=== PATIENT | female | born 1940 | race Caucasian/White ===

== ENCOUNTER 2019-12-01 22:32 | Inpatient (IN) ==
[2019-12-01] MEDS ORDERED: ENOXAPARIN 60 MG/0.6 ML SYRINGE ONE (22:51)
[2019-12-01] MEDS ORDERED: ENOXAPARIN 60 MG/0.6 ML SYRINGE IV ONE (22:51)
[2019-12-01] MEDS ORDERED: ONDANSETRON 4 MG/2 ML VIAL IV STA (22:51)
[2019-12-01] MEDS ORDERED: NITROGLYCERIN 2% OINT 1 INCH/GM PACK TOP STA (22:51)
[2019-12-01] MEDS ORDERED: ASPIRIN 325 MG TABLET PO STA (22:51)
[2019-12-01] MEDS ORDERED: ENOXAPARIN 100 MG/ML SYRINGE SUBCUT STA (22:51)
[2019-12-01] MEDS ORDERED: ENOXAPARIN 30 MG/0.3 ML SYRINGE ONE (22:52)
[2019-12-01] MEDS ORDERED: ASPIRIN 325 MG TABLET ONE (22:52)
[2019-12-01] MEDS ORDERED: NITROGLYCERIN 2% OINT 1 INCH/GM PACK TOP ONE (22:52)
[2019-12-01 23:05] LABS: Basophils # 0.1 10*3/uL (0.0-0.2); Basophils % 1.1 % (0.0-0.8); Eosinophils # 0.5 10*3/uL (0.0-0.87); Hematocrit 34.7 VOL% (35.7-47.0); Immature Granulocytes % 0.3 %; Immature Granulocytes Absolute 0.02 #; Lymphocytes # 3.7 10*3/uL (1.4-4.0); Lymphocytes % 49.5 % (21.3-54.2); Mean Corpuscular HGB Conc 31.7 GM/DL (32-36); Mean Corpuscular Volume 99.1 FL (87-102); Mean Platelet Volume 9.6 FL (9.6-12.0); Monocytes % 8.3 % (1.7-12.7); Neutrophils % 34.8 % (38.7-73.9); Platelet Count 351 T/CUMM (130-400); Red Cell Distribution Width 13.8 % (9.3-17.3); White Blood Count 7.5 T/CUMM (4-12)
[2019-12-01 23:15] LABS: INR 0.9; PT Patient Result 9.5 SECS (9.6-12.2); Partial Thromboplastin Time 25.4 SECS (20.8-36.0)
[2019-12-01] MEDS ORDERED: HYDROmorphone 2 MG/1 ML VIAL ONE (23:26)
[2019-12-01 23:29] LABS: Alanine Aminotransferase 26 U/L (13-56); Albumin 3.7 G/DL (3.4-5.0); Alkaline Phosphatase 84 U/L (45-117); Aspartate Amino Transferase 28 U/L (0-37); Bilirubin,Total < 0.39 MG/DL (0.2-1.0); Blood Urea Nitrogen 24 MG/DL (7-18); Calcium 9.2 MG/DL (8.5-10.1); Estimated Glom Filtration Rate 30 ML/MIN; Glucose 117 MG/DL (74-106); Osmolality,Calculated 281.5 MOS/KG (273-304); Total Protein 7.2 G/DL (6.4-8.3)
[2019-12-01 23:32] LABS: Troponin I 0.173 NG/ML (0.00-0.045)
[2019-12-01] MEDS ORDERED: MIDAZOLAM 2 MG/2 ML VIAL ONE (23:46)
[2019-12-01] MEDS ORDERED: TIROFIBAN 5,000 MCG/100 ML PREMIX IV ONE (23:47)
[2019-12-02 00:07] LABS: Band Neutrophils 3 % (0-10); Eosinophils 8 % (0-10); Lymphocytes 47 % (20-55); Segmented Neutrophils 30 % (50-85); Total Cells Counted 100
[2019-12-02 00:08] LABS: Platelet Estimate Normal
[2019-12-02] MEDS ORDERED: TICAGRELOR 90 MG TABLET ONE (00:26)
[2019-12-02] MEDS ORDERED: FUROSEMIDE 40 MG/4 ML VIAL IV ONE ×3 (01:59→18:32)
[2019-12-02] MEDS: methylPREDNISolone SOD SUC 125 MG/2 ML VIAL IV SCH ×2 (02:20→14:56)
[2019-12-02] MEDS: ROSUVASTATIN 20 MG TABLET PO SCH ×2 (02:21→20:20)
[2019-12-02 02:43] LABS: CKMB % 7.4 %
[2019-12-02 02:48] LABS: Troponin I 3.34 NG/ML (0.00-0.045)
[2019-12-02] MEDS: LEVALBUTEROL 0.63 MG/3 ML NEB RESP TX SCH ×4 (03:21→19:06)
[2019-12-02 05:02] LABS: Basophils # 0.1 10*3/uL (0.0-0.2); Basophils % 0.6 % (0.0-0.8); Eosinophils # 0.1 10*3/uL (0.0-0.87); Eosinophils % 0.6 % (0.00-10.9); Hematocrit 37.4 VOL% (35.7-47.0); Hemoglobin 11.5 GM/DL (12.0-16.0); Immature Granulocytes % 0.3 %; Immature Granulocytes Absolute 0.03 #; Lymphocytes % 18.5 % (21.3-54.2); Mean Corpuscular HGB Conc 30.7 GM/DL (32-36); Mean Corpuscular Volume 99.2 FL (87-102); Mean Platelet Volume 9.8 FL (9.6-12.0); Monocytes % 4.2 % (1.7-12.7); Neutrophils % 75.8 % (38.7-73.9); Platelet Count 405 T/CUMM (130-400); Red Blood Count 3.77 MC/CUMM (3.8-5.5); Red Cell Distribution Width 13.8 % (9.3-17.3); White Blood Count 10.8 T/CUMM (4-12)
[2019-12-02 05:31] LABS: CKMB % 10.1 %; Calcium 9.2 MG/DL (8.5-10.1); Osmolality,Calculated 275.1 MOS/KG (273-304)
[2019-12-02 06:30] LABS: Troponin I 9.29 NG/ML (0.00-0.045)
[2019-12-02] MEDS: CYANOCOBALAMIN 500 MCG TABLET PO SCH (08:45)
[2019-12-02] MEDS: TICAGRELOR 90 MG TABLET PO SCH ×2 (08:45→20:20)
[2019-12-02] MEDS: ASPIRIN CHEW 81 MG TABLET PO SCH (08:45)
[2019-12-02] MEDS: MULTIVITAMIN (CENTRUM) TABLET PO SCH (08:45)
[2019-12-02] MEDS: PANTOPRAZOLE 20 MG TABLET PO SCH (08:45)
[2019-12-02] MEDS: METOPROLOL TARTRATE 25 MG TABLET PO SCH ×3 (08:45→20:20)
[2019-12-02] MEDS: PSYLLIUM POWDER 3.7 GM/PACK PO SCH ×3 (08:45→20:19)
[2019-12-02] MEDS ORDERED: METOPROLOL TARTRATE 5 MG/5 ML VIAL IV ONE (10:26)
[2019-12-02] MEDS ORDERED: FUROSEMIDE 40 MG/4 ML VIAL IV SCH (10:30)
[2019-12-02 11:59] LABS: CKMB % 9.2 %
[2019-12-02 12:01] LABS: Troponin I 13.8 NG/ML (0.00-0.045)
[2019-12-02] MEDS: NITROGLYCERIN 2% OINT 1 INCH/GM PACK TOP SCH ×2 (12:09→17:50)
[2019-12-02] MEDS: FUROSEMIDE 40 MG/4 ML VIAL IV SCH (17:54)
[2019-12-02] MEDS ORDERED: FUROSEMIDE 100 MG/10 ML VIAL ONE (18:39)
[2019-12-02] MEDS: GABAPENTIN 100 MG CAPSULE PO SCH (20:19)
[2019-12-02] MEDS ORDERED: ALPRAZolam 0.25 MG TABLET PO ONE (22:24)
[2019-12-02] MEDS ORDERED: ALBUTEROL/IPRATROPIUM 3 ML NEB RESP TX PRN (22:24)
[2019-12-02] MEDS: metOLazone 2.5 MG TABLET PO SCH (22:43)
[2019-12-02 23:06] LABS: Allen Test Positive
[2019-12-02 23:07] LABS: ABG HCO3 27.4 MMOL/L (20-26); ABG PCO2 29.1 MM HG (35-48); ABG PH 7.544 (7.35-7.45); ABG PO2 71.7 MM HG (80-95)
[2019-12-02 23:08] LABS: ABG Base Excess 3.4 MMOL/L (-2.5-2.5); ABG Oxygen Saturation 96.1 % (95-100); ABG TCO2 22.2 MMOL/L (23-27)
[2019-12-02] MEDS ORDERED: CLORAZEPATE 3.75 MG TABLET PO PRN (23:20)
[2019-12-03] MEDS: LEVALBUTEROL 0.63 MG/3 ML NEB RESP TX SCH ×4 (00:11→18:55)
[2019-12-03] MEDS: methylPREDNISolone SOD SUC 125 MG/2 ML VIAL IV SCH (02:08)
[2019-12-03 05:01] LABS: Basophils % 0.1 % (0.0-0.8); Immature Granulocytes % 0.5 %; Immature Granulocytes Absolute 0.05 #; Lymphocytes # 1.2 10*3/uL (1.4-4.0); Lymphocytes % 12.2 % (21.3-54.2); Mean Corpuscular HGB Conc 33.3 GM/DL (32-36); Mean Corpuscular Volume 93.5 FL (87-102); Mean Platelet Volume 10.2 FL (9.6-12.0); Monocytes % 5.6 % (1.7-12.7); Neutrophils % 81.6 % (38.7-73.9); Platelet Count 334 T/CUMM (130-400); Red Blood Count 3.53 MC/CUMM (3.8-5.5); Red Cell Distribution Width 13.7 % (9.3-17.3); White Blood Count 9.4 T/CUMM (4-12)
[2019-12-03 08:06] LABS: CKMB % 5.4 %; Calcium 9.2 MG/DL (8.5-10.1); Osmolality,Calculated 267.9 MOS/KG (273-304)
[2019-12-03 08:12] LABS: Troponin I 20.8 NG/ML (0.00-0.045)
[2019-12-03] MEDS ORDERED: POTASSIUM CHLORIDE 20 MEQ TABLET PO ONE ×3 (08:58→16:37)
[2019-12-03] MEDS ORDERED: MAGNESIUM SULF RIDER 4 GM in PREMIX 1 EACH IV ONE (08:58)
[2019-12-03] MEDS: ASPIRIN CHEW 81 MG TABLET PO SCH (09:12)
[2019-12-03] MEDS: CYANOCOBALAMIN 500 MCG TABLET PO SCH (09:12)
[2019-12-03] MEDS: PANTOPRAZOLE 20 MG TABLET PO SCH (09:12)
[2019-12-03] MEDS: metOLazone 2.5 MG TABLET PO SCH (09:12)
[2019-12-03] MEDS: TICAGRELOR 90 MG TABLET PO SCH ×2 (09:12→20:41)
[2019-12-03] MEDS: MULTIVITAMIN (CENTRUM) TABLET PO SCH (09:12)
[2019-12-03] MEDS: FUROSEMIDE 40 MG/4 ML VIAL IV SCH ×2 (09:13→16:16)
[2019-12-03] MEDS ORDERED: FUROSEMIDE 100 MG/10 ML VIAL ONE (16:04)
[2019-12-03] MEDS: GABAPENTIN 100 MG CAPSULE PO SCH (20:41)
[2019-12-03] MEDS: PSYLLIUM POWDER 3.7 GM/PACK PO SCH (20:41)
[2019-12-04] MEDS: LEVALBUTEROL 0.63 MG/3 ML NEB RESP TX SCH ×4 (01:04→18:50)
[2019-12-04 05:35] LABS: Basophils % 0.1 % (0.0-0.8); Eosinophils % 0.1 % (0.00-10.9); Hematocrit 30.3 VOL% (35.7-47.0); Hemoglobin 10.1 GM/DL (12.0-16.0); Immature Granulocytes % 0.6 %; Immature Granulocytes Absolute 0.08 #; Lymphocytes # 1.3 10*3/uL (1.4-4.0); Lymphocytes % 10.3 % (21.3-54.2); Mean Corpuscular HGB Conc 33.3 GM/DL (32-36); Mean Corpuscular Volume 94.7 FL (87-102); Mean Platelet Volume 10.5 FL (9.6-12.0); Monocytes % 11.1 % (1.7-12.7); Neutrophils % 77.8 % (38.7-73.9); Platelet Count 307 T/CUMM (130-400); Red Cell Distribution Width 13.9 % (9.3-17.3); White Blood Count 12.6 T/CUMM (4-12)
[2019-12-04 05:44] LABS: CKMB % 4.2 %; Calcium 9.1 MG/DL (8.5-10.1); Osmolality,Calculated 280.7 MOS/KG (273-304)
[2019-12-04 06:00] LABS: Risk Ratio 4.39
[2019-12-04] MEDS: MULTIVITAMIN (CENTRUM) TABLET PO SCH (08:26)
[2019-12-04] MEDS: metOLazone 2.5 MG TABLET PO SCH (08:26)
[2019-12-04] MEDS: FUROSEMIDE 40 MG/4 ML VIAL IV SCH (08:26)
[2019-12-04] MEDS: PANTOPRAZOLE 20 MG TABLET PO SCH (08:26)
[2019-12-04] MEDS: TICAGRELOR 90 MG TABLET PO SCH ×2 (08:27→20:18)
[2019-12-04] MEDS: ASPIRIN CHEW 81 MG TABLET PO SCH (08:27)
[2019-12-04] MEDS: CYANOCOBALAMIN 500 MCG TABLET PO SCH (08:27)
[2019-12-04] MEDS: PSYLLIUM POWDER 3.7 GM/PACK PO SCH (20:18)
[2019-12-04] MEDS: GABAPENTIN 100 MG CAPSULE PO SCH (20:18)
[2019-12-04] MEDS: EZETIMIBE 10 MG TABLET PO SCH (20:18)
[2019-12-05] MEDS: LEVALBUTEROL 0.63 MG/3 ML NEB RESP TX SCH ×4 (02:22→19:37)
[2019-12-05 04:50] LABS: Basophils % 0.1 % (0.0-0.8); Eosinophils # 0.2 10*3/uL (0.0-0.87); Hematocrit 29.3 VOL% (35.7-47.0); Hemoglobin 9.5 GM/DL (12.0-16.0); Immature Granulocytes % 0.5 %; Immature Granulocytes Absolute 0.04 #; Lymphocytes # 1.9 10*3/uL (1.4-4.0); Mean Corpuscular HGB Conc 32.4 GM/DL (32-36); Mean Corpuscular Volume 95.1 FL (87-102); Mean Platelet Volume 10.3 FL (9.6-12.0); Monocytes % 12.6 % (1.7-12.7); Neutrophils % 58.8 % (38.7-73.9); Platelet Count 296 T/CUMM (130-400); Red Blood Count 3.08 MC/CUMM (3.8-5.5); Red Cell Distribution Width 13.7 % (9.3-17.3); White Blood Count 7.5 T/CUMM (4-12)
[2019-12-05 05:12] LABS: CKMB % 2.7 %; Calcium 8.8 MG/DL (8.5-10.1); Osmolality,Calculated 283.7 MOS/KG (273-304)
[2019-12-05 05:13] LABS: Troponin I 5.09 NG/ML (0.00-0.045)
[2019-12-05] MEDS: CYANOCOBALAMIN 500 MCG TABLET PO SCH (09:07)
[2019-12-05] MEDS: TICAGRELOR 90 MG TABLET PO SCH ×2 (09:07→20:38)
[2019-12-05] MEDS: MULTIVITAMIN (CENTRUM) TABLET PO SCH (09:07)
[2019-12-05] MEDS ORDERED: SODIUM CHLORIDE 0.65% NASAL SPRAY 45 ML BOTTLE BOTH NARES PRN (09:08)
[2019-12-05] MEDS: ASPIRIN CHEW 81 MG TABLET PO SCH (09:09)
[2019-12-05] MEDS: PANTOPRAZOLE 20 MG TABLET PO SCH (09:09)
[2019-12-05] MEDS: POTASSIUM CHLORIDE 20 MEQ TABLET PO PRN ×4 (09:09→18:41)
[2019-12-05] MEDS ORDERED: diphenhydrAMINE CAP 25 MG CAPSULE PO PRN (09:32)
[2019-12-05] MEDS ORDERED: MAGNESIUM HYDROXIDE SUSP 30 ML UDCUP PO PRN (09:32)
[2019-12-05] MEDS: SODIUM CHLORIDE 0.45% 500 ML IV SCH ×2 (09:47→12:20)
[2019-12-05 14:12] LABS: Calcium 8.5 MG/DL (8.5-10.1); Osmolality,Calculated 287.5 MOS/KG (273-304)
[2019-12-05] MEDS: GABAPENTIN 100 MG CAPSULE PO SCH (20:38)
[2019-12-05] MEDS: EZETIMIBE 10 MG TABLET PO SCH (20:38)
[2019-12-05] MEDS: PSYLLIUM POWDER 3.7 GM/PACK PO SCH (20:38)
[2019-12-06] MEDS: LEVALBUTEROL 0.63 MG/3 ML NEB RESP TX SCH ×2 (00:54→07:28)
[2019-12-06 04:56] LABS: Basophils % 0.4 % (0.0-0.8); Eosinophils # 0.5 10*3/uL (0.0-0.87); Eosinophils % 6.1 % (0.00-10.9); Hematocrit 31.8 VOL% (35.7-47.0); Hemoglobin 10.3 GM/DL (12.0-16.0); Immature Granulocytes % 0.9 %; Immature Granulocytes Absolute 0.07 #; Lymphocytes # 2.3 10*3/uL (1.4-4.0); Lymphocytes % 30.4 % (21.3-54.2); Mean Corpuscular HGB Conc 32.4 GM/DL (32-36); Mean Platelet Volume 10.3 FL (9.6-12.0); Monocytes % 11.5 % (1.7-12.7); Neutrophils % 50.7 % (38.7-73.9); Platelet Count 328 T/CUMM (130-400); Red Blood Count 3.28 MC/CUMM (3.8-5.5); Red Cell Distribution Width 13.8 % (9.3-17.3); White Blood Count 7.7 T/CUMM (4-12)
[2019-12-06 05:22] LABS: Calcium 9.3 MG/DL (8.5-10.1)
[2019-12-06 08:18] VITALS: BP 122/62
[2019-12-06] MEDS: POTASSIUM CHLORIDE 20 MEQ TABLET PO PRN (09:26)
[2019-12-06] MEDS: MULTIVITAMIN (CENTRUM) TABLET PO SCH (09:26)
[2019-12-06] MEDS: ASPIRIN CHEW 81 MG TABLET PO SCH (09:26)
[2019-12-06] MEDS: TICAGRELOR 90 MG TABLET PO SCH (09:26)
[2019-12-06] MEDS: CYANOCOBALAMIN 500 MCG TABLET PO SCH (09:26)
[2019-12-06] MEDS: PANTOPRAZOLE 20 MG TABLET PO SCH (09:26)
== END 2019-12-06 12:30 | disposition home or self-care (01) | DRG 246 ==
LOC: N.ED 22:32 → N.CC 23:15 → N.EDINP 23:27 → N.CC 12-02 00:14 → N.TELES 12-04 14:18
PROVIDERS: ADMIT Internal Medicine Cardiovascular Disease; ATTEND Internal Medicine Cardiovascular Disease
PROC: CLCCHCL (ICD-10-PCS; 2019-12-01 23:45)

== ENCOUNTER 2019-12-18 08:54 | Observation (INO) ==
[2019-12-18] MEDS ORDERED: ASPIRIN 325 MG TABLET PO STA (09:27)
[2019-12-18 09:55] LABS: Basophils # 0.1 10*3/uL (0.0-0.2); Basophils % 0.8 % (0.0-0.8); Eosinophils # 0.2 10*3/uL (0.0-0.87); Eosinophils % 2.3 % (0.00-10.9); Hematocrit 35.4 VOL% (35.7-47.0); Hemoglobin 11.1 GM/DL (12.0-16.0); Immature Granulocytes % 0.3 %; Immature Granulocytes Absolute 0.02 #; Lymphocytes # 1.2 10*3/uL (1.4-4.0); Lymphocytes % 16.7 % (21.3-54.2); Mean Corpuscular HGB Conc 31.4 GM/DL (32-36); Mean Corpuscular Volume 98.1 FL (87-102); Mean Platelet Volume 9.4 FL (9.6-12.0); Monocytes % 7.2 % (1.7-12.7); Neutrophils % 72.7 % (38.7-73.9); Platelet Count 511 T/CUMM (130-400); Red Blood Count 3.61 MC/CUMM (3.8-5.5); Red Cell Distribution Width 13.7 % (9.3-17.3); White Blood Count 7.1 T/CUMM (4-12)
[2019-12-18 10:02] LABS: INR 0.9
[2019-12-18 10:15] LABS: Alanine Aminotransferase 33 U/L (13-56); Albumin 3.8 G/DL (3.4-5.0); Alkaline Phosphatase 83 U/L (45-117); Aspartate Amino Transferase 57 U/L (0-37); Blood Urea Nitrogen 25 MG/DL (7-18); Calcium 9.9 MG/DL (8.5-10.1); Estimated Glom Filtration Rate 28 ML/MIN; Glucose 117 MG/DL (74-106); Osmolality,Calculated 279.7 MOS/KG (273-304)
[2019-12-18 10:17] LABS: Troponin I 0.107 NG/ML (0.00-0.045)
[2019-12-18 10:22] LABS: Hypochromasia Slight; Platelet Estimate Increased
[2019-12-18] MEDS ORDERED: HEPARIN/NACL 0.9% 2 UNITS/ML 1,500 ML IV ONE (11:17)
[2019-12-18] MEDS ORDERED: LIDOCAINE 1% 20 ML VIAL ONE (11:17)
[2019-12-18] MEDS ORDERED: fentaNYL 100 MCG/2 ML VIAL ONE (11:22)
[2019-12-18] MEDS ORDERED: MIDAZOLAM 2 MG/2 ML VIAL ONE (11:22)
[2019-12-18] MEDS ORDERED: NITROGLYCERIN SL 0.4 MG TABLET SL PRN (12:58)
[2019-12-18] MEDS ORDERED: FUROSEMIDE 20 MG TABLET PO PRN (12:58)
[2019-12-18] MEDS ORDERED: SODIUM CHLORIDE 0.9% 1,000 ML IV SCH (13:00)
[2019-12-18 14:06] LABS: Troponin I 0.188 NG/ML (0.00-0.045)
[2019-12-18] MEDS ORDERED: ALPRAZolam 0.25 MG TABLET PO PRN (20:00)
[2019-12-18] MEDS ORDERED: MORPHINE 4 MG/1 ML VIAL IV PRN (20:00)
[2019-12-18] MEDS: TICAGRELOR 90 MG TABLET PO SCH (20:39)
[2019-12-18] MEDS ORDERED: EZETIMIBE 10 MG TABLET PO SCH (21:00)
[2019-12-18] MEDS ORDERED: GABAPENTIN 100 MG CAPSULE PO SCH (21:00)
[2019-12-18] MEDS ORDERED: SIMVASTATIN 20 MG TABLET PO SCH (21:00)
[2019-12-19 05:24] LABS: Basophils % 0.6 % (0.0-0.8); Eosinophils # 0.5 10*3/uL (0.0-0.87); Eosinophils % 7.4 % (0.00-10.9); Hematocrit 30.8 VOL% (35.7-47.0); Hemoglobin 9.8 GM/DL (12.0-16.0); Immature Granulocytes % 0.3 %; Immature Granulocytes Absolute 0.02 #; Lymphocytes # 0.9 10*3/uL (1.4-4.0); Lymphocytes % 13.4 % (21.3-54.2); Mean Corpuscular HGB Conc 31.8 GM/DL (32-36); Mean Corpuscular Volume 97.2 FL (87-102); Mean Platelet Volume 9.7 FL (9.6-12.0); Monocytes % 7.6 % (1.7-12.7); Neutrophils % 70.7 % (38.7-73.9); Platelet Count 411 T/CUMM (130-400); Red Blood Count 3.17 MC/CUMM (3.8-5.5); Red Cell Distribution Width 13.5 % (9.3-17.3); White Blood Count 6.6 T/CUMM (4-12)
[2019-12-19 05:48] LABS: Albumin 3.3 G/DL (3.4-5.0); Bilirubin,Total 0.5 MG/DL (0.2-1.0); Calcium 9.1 MG/DL (8.5-10.1); Osmolality,Calculated 280.5 MOS/KG (273-304); Total Protein 6.8 G/DL (6.4-8.3)
[2019-12-19] MEDS: TICAGRELOR 90 MG TABLET PO SCH (08:13)
[2019-12-19] MEDS ORDERED: MULTIVITAMIN (CENTRUM) TABLET PO SCH (09:00)
[2019-12-19] MEDS ORDERED: SPIRONOLACTONE 25 MG TABLET PO SCH (09:00)
[2019-12-19] MEDS ORDERED: CYANOCOBALAMIN 500 MCG TABLET PO SCH (09:00)
[2019-12-19] MEDS ORDERED: ASPIRIN EC 81 MG TABLET PO SCH (09:00)
[2019-12-19] MEDS ORDERED: ASCORBIC ACID 500 MG TABLET PO SCH (09:00)
[2019-12-19] MEDS ORDERED: ISOSORBIDE MONONITRATE 30 MG TABLET PO SCH (09:00)
[2019-12-19] MEDS ORDERED: PANTOPRAZOLE 40 MG TABLET PO SCH (09:00)
[2019-12-19] MEDS ORDERED: PSYLLIUM POWDER 3.7 GM/PACK PO SCH (09:00)
[2019-12-19] MEDS ORDERED: CHOLECALCIFEROL 1,000 UNIT TABLET PO SCH (09:00)
[2019-12-19] MEDS ORDERED: METOPROLOL SUCCINATE XL 25 MG TABLET PO SCH ×2 (09:00)
[2019-12-19 09:59] VITALS: BP 157/68
== END 2019-12-19 10:00 | disposition home or self-care (01) ==
LOC: N.EDINP 08:54 → N.ED 08:54 → N.TELES 11:24 → N.CVR 12:40 → N.TELES 12:43
PROVIDERS: ADMIT Emergency Medicine; ATTEND Emergency Medicine
PROC: CLCCHCL (ICD-10-PCS; 2019-12-18 11:45)

== ENCOUNTER 2020-03-26 22:11 | Observation (INO) ==
[2020-03-26 22:40] LABS: Basophils # 0.1 10*3/uL (0.0-0.2); Basophils % 0.6 % (0.0-0.8); Eosinophils # 0.4 10*3/uL (0.0-0.87); Eosinophils % 5.3 % (0.00-10.9); Hematocrit 34.9 VOL% (35.7-47.0); Hemoglobin 11.2 GM/DL (12.0-16.0); Immature Granulocytes % 0.4 %; Immature Granulocytes Absolute 0.03 #; Lymphocytes % 39.3 % (21.3-54.2); Mean Corpuscular HGB Conc 32.1 GM/DL (32-36); Mean Corpuscular Volume 96.1 FL (87-102); Mean Platelet Volume 9.7 FL (9.6-12.0); Neutrophils % 45.4 % (38.7-73.9); Platelet Count 364 T/CUMM (130-400); Red Blood Count 3.63 MC/CUMM (3.8-5.5); Red Cell Distribution Width 14.6 % (9.3-17.3); White Blood Count 7.7 T/CUMM (4-12)
[2020-03-26 22:49] LABS: INR 0.9; PT Patient Result 9.8 SECS (9.8-11.9)
[2020-03-26 22:59] LABS: Alanine Aminotransferase 28 U/L (13-56); Albumin 3.7 G/DL (3.4-5.0); Alkaline Phosphatase 115 U/L (45-117); Aspartate Amino Transferase 37 U/L (0-37); Bilirubin,Total < 0.39 MG/DL (0.2-1.0); Blood Urea Nitrogen 24 MG/DL (7-18); Estimated Glom Filtration Rate 22 ML/MIN; Glucose 134 MG/DL (74-106); Osmolality,Calculated 282.5 MOS/KG (273-304); Total Protein 7.5 G/DL (6.4-8.3)
[2020-03-26] MEDS ORDERED: NITROGLYCERIN SL 0.4 MG TABLET SL PRN (23:18)
[2020-03-27] MEDS ORDERED: ACETAMINOPHEN 325 MG TABLET PO PRN (01:09)
[2020-03-27] MEDS ORDERED: MORPHINE 4 MG/1 ML VIAL IV PRN (01:09)
[2020-03-27] MEDS ORDERED: POTASSIUM CHLORIDE 20 MEQ TABLET PO PRN (01:09)
[2020-03-27] MEDS ORDERED: ONDANSETRON 4 MG/2 ML VIAL IV PRN (01:09)
[2020-03-27] MEDS ORDERED: traMADol 50 MG TABLET PO PRN (01:09)
[2020-03-27] MEDS ORDERED: ENOXAPARIN 30 MG/0.3 ML SYRINGE SUBCUT SCH (01:30)
[2020-03-27] MEDS ORDERED: hydrALAZINE 20 MG/1 ML VIAL IV PRN (01:45)
[2020-03-27] MEDS ORDERED: GLUCAGON 1 MG VIAL IM PRN (02:16)
[2020-03-27] MEDS ORDERED: DEXTROSE 50% 25 GM/50 ML VIAL IV PRN (02:16)
[2020-03-27 06:59] LABS: Basophils % 0.7 % (0.0-0.8); Eosinophils # 0.2 10*3/uL (0.0-0.87); Eosinophils % 2.8 % (0.00-10.9); Hematocrit 32.3 VOL% (35.7-47.0); Hemoglobin 10.3 GM/DL (12.0-16.0); Immature Granulocytes % 0.4 %; Immature Granulocytes Absolute 0.02 #; Lymphocytes # 2.1 10*3/uL (1.4-4.0); Lymphocytes % 37.9 % (21.3-54.2); Mean Corpuscular HGB Conc 31.9 GM/DL (32-36); Mean Corpuscular Volume 94.4 FL (87-102); Mean Platelet Volume 9.8 FL (9.6-12.0); Monocytes % 8.3 % (1.7-12.7); Neutrophils % 49.9 % (38.7-73.9); Platelet Count 290 T/CUMM (130-400); Red Blood Count 3.42 MC/CUMM (3.8-5.5); Red Cell Distribution Width 14.7 % (9.3-17.3); White Blood Count 5.6 T/CUMM (4-12)
[2020-03-27] MEDS ORDERED: POTASSIUM CHLORIDE RIDER 10 MEQ in PREMIX 1 EACH IV PRN (07:01)
[2020-03-27 07:15] LABS: Albumin 3.2 G/DL (3.4-5.0); Bilirubin,Total 0.5 MG/DL (0.2-1.0); Risk Ratio 5.43; Total Protein 6.4 G/DL (6.4-8.3); VLDL CHOLESTEROL 42.4 MG/DL
[2020-03-27] MEDS ORDERED: FUROSEMIDE 20 MG TABLET PO PRN (07:56)
[2020-03-27] MEDS ORDERED: ASPIRIN 325 MG TABLET ONE (08:07)
[2020-03-27] MEDS ORDERED: CHOLECALCIFEROL 1,000 UNIT TABLET PO SCH (09:00)
[2020-03-27] MEDS ORDERED: ASPIRIN 325 MG TABLET PO ONE (09:00)
[2020-03-27] MEDS ORDERED: ASPIRIN EC 81 MG TABLET PO SCH (09:00)
[2020-03-27] MEDS ORDERED: FERROUS SULFATE 325 MG TABLET PO SCH (09:00)
[2020-03-27] MEDS ORDERED: CLOPIDOGREL 75 MG TABLET PO SCH (09:00)
[2020-03-27] MEDS ORDERED: SPIRONOLACTONE 25 MG TABLET PO SCH (09:00)
[2020-03-27] MEDS ORDERED: PANTOPRAZOLE 40 MG VIAL IV SCH (09:00)
[2020-03-27] MEDS ORDERED: ISOSORBIDE MONONITRATE 30 MG TABLET PO SCH (09:00)
[2020-03-27] MEDS ORDERED: NON-FORMULARY MEDICATION (Omeprazole 20 MG) PO SCH (09:00)
[2020-03-27] MEDS ORDERED: METOPROLOL SUCCINATE XL 25 MG TABLET PO SCH (09:00)
[2020-03-27] MEDS ORDERED: MULTIVITAMIN PO SCH (09:00)
[2020-03-27] MEDS ORDERED: ASPIRIN 325 MG TABLET PO SCH (09:00)
[2020-03-27] MEDS ORDERED: TICAGRELOR 90 MG TABLET PO SCH (10:32)
[2020-03-27] MEDS ORDERED: KETOROLAC 30 MG/1 ML VIAL IV ONE (10:32)
[2020-03-27] MEDS ORDERED: ACETAMINOPHEN 325 MG TABLET PO SCH (11:00)
[2020-03-27 13:14] VITALS: BP 204/76
[2020-03-27] MEDS ORDERED: GABAPENTIN 100 MG CAPSULE PO SCH ×2 (15:00→21:00)
[2020-03-27] MEDS ORDERED: CYANOCOBALAMIN 250 MCG PO SCH (21:00)
[2020-03-27] MEDS ORDERED: EZETIMIBE 10 MG TABLET PO SCH (21:00)
[2020-03-27] MEDS ORDERED: ASCORBIC ACID 1 GM PO SCH (21:00)
[2020-03-27] MEDS ORDERED: PSYLLIUM HUSK PO SCH (21:00)
== END 2020-03-27 13:14 | disposition home or self-care (01) ==
LOC: N.ED 22:11 → N.EDINP 22:11 → SUATTDRO 03-27 01:09 → N.EDINP 03-27 13:13
PROVIDERS: ADMIT Internal Medicine; ATTEND Internal Medicine

== ENCOUNTER 2022-10-16 13:36 | Observation (INO) ==
[2022-10-16 14:04] LABS: Basophils % 0.6 % (0.0-0.8); Eosinophils # 0.3 10*3/uL (0.0-0.87); Eosinophils % 4.6 % (0.00-10.9); Hematocrit 36.2 VOL% (35.7-47.0); Hemoglobin 11.6 GM/DL (12.0-16.0); Immature Granulocytes % 0.4 %; Immature Granulocytes Absolute 0.03 #; Lymphocytes # 2.8 10*3/uL (1.4-4.0); Lymphocytes % 41.2 % (21.3-54.2); Mean Corpuscular Volume 98.6 FL (87-102); Mean Platelet Volume 9.2 FL (9.6-12.0); Monocytes # 0.5 10*3/uL (0.11-0.8); Monocytes % 7.7 % (1.7-12.7); Neutrophils % 45.5 % (38.7-73.9); Platelet Count 384 T/CUMM (130-400); Red Blood Count 3.67 MC/CUMM (3.8-5.5); Red Cell Distribution Width 14.1 % (9.3-17.3); White Blood Count 6.7 T/CUMM (4-12)
[2022-10-16 14:14] LABS: INR 0.9; PT Patient Result 10.5 SECS (10.1-12.1)
[2022-10-16 14:29] LABS: Alanine Aminotransferase 23 U/L (13-56); Albumin 4.1 G/DL (3.4-5.0); Alkaline Phosphatase 125 U/L (45-117); Aspartate Amino Transferase 25 U/L (0-37); Bilirubin,Total < 0.39 MG/DL (0.20-1.00); Blood Urea Nitrogen 20 MG/DL (7-18); Calcium 9.6 MG/DL (8.5-10.1); Carbon Dioxide 28 MMOL/L (21-32); Chloride 108 MMOL/L (98-107); Glucose 113 MG/DL (74-106); Sodium 143 MMOL/L (136-145); Total Protein 7.1 G/DL (6.4-8.2)
[2022-10-16] MEDS ORDERED: NITROGLYCERIN SL 0.4 MG TABLET SL ONE (15:04)
[2022-10-16] MEDS ORDERED: NITROGLYCERIN SL 0.4 MG TABLET SL STA (15:05)
[2022-10-16] MEDS ORDERED: ONDANSETRON 4 MG/2 ML VIAL IV PRN (15:52)
[2022-10-16] MEDS ORDERED: hydrALAZINE 20 MG/1 ML VIAL IV PRN (15:52)
[2022-10-16] MEDS ORDERED: MORPHINE 2 MG/1 ML SYRINGE IV PRN (15:52)
[2022-10-16] MEDS ORDERED: ACETAMINOPHEN 325 MG TABLET PO PRN (15:52)
[2022-10-16] MEDS ORDERED: ASPIRIN 325 MG TABLET PO ONE (16:06)
[2022-10-16] MEDS ORDERED: METOPROLOL TARTRATE 50 MG TABLET PO ONE (20:32)
[2022-10-16] MEDS ORDERED: NITROGLYCERIN SL 0.4 MG TABLET SL PRN (22:28)
[2022-10-16] MEDS ORDERED: CALCIUM CARBONATE CHEW 500 MG TABLET PO PRN (22:28)
[2022-10-16] MEDS ORDERED: RIVAROXABAN 2.5 MG TABLET PO ONE (22:31)
[2022-10-17 04:30] LABS: Basophils # 0.1 10*3/uL (0.0-0.2); Basophils % 0.8 % (0.0-0.8); Eosinophils # 0.3 10*3/uL (0.0-0.87); Eosinophils % 4.6 % (0.00-10.9); Hematocrit 31.3 VOL% (35.7-47.0); Hemoglobin 10.2 GM/DL (12.0-16.0); Immature Granulocytes % 0.3 %; Immature Granulocytes Absolute 0.02 #; Lymphocytes # 2.7 10*3/uL (1.4-4.0); Mean Corpuscular HGB Conc 32.6 GM/DL (32-36); Mean Corpuscular Volume 98.1 FL (87-102); Mean Platelet Volume 9.4 FL (9.6-12.0); Monocytes # 0.5 10*3/uL (0.11-0.8); Neutrophils % 40.3 % (38.7-73.9); Platelet Count 299 T/CUMM (130-400); Red Blood Count 3.19 MC/CUMM (3.8-5.5); Red Cell Distribution Width 14.2 % (9.3-17.3); White Blood Count 5.9 T/CUMM (4-12)
[2022-10-17 04:49] LABS: Calcium 9.2 MG/DL (8.5-10.1); Potassium 4.1 MMOL/L (3.5-5.1); Risk Ratio 3.02; VLDL Cholesterol 21.6 MG/DL
[2022-10-17] MEDS ORDERED: RIVAROXABAN 2.5 MG TABLET PO SCH (09:00)
[2022-10-17] MEDS: amLODIPine 2.5 MG TABLET PO SCH (09:06)
[2022-10-17] MEDS: ASPIRIN EC 81 MG TABLET PO SCH (09:07)
[2022-10-17] MEDS: SERTRALINE 25 MG TABLET PO SCH (09:07)
[2022-10-17] MEDS: ISOSORBIDE MONONITRATE 30 MG TABLET PO SCH (09:08)
[2022-10-17] MEDS: PANTOPRAZOLE 40 MG TABLET PO SCH (09:11)
[2022-10-17] MEDS ORDERED: hydrALAZINE 20 MG/1 ML VIAL IV PRN (10:19)
[2022-10-17] MEDS ORDERED: POTASSIUM CHLORIDE RIDER 10 MEQ/100 ML PREMIX IV PRN (10:20)
[2022-10-17] MEDS ORDERED: MAGNESIUM SULF RIDER 2 GM/50 ML PREMIX IV PRN (10:20)
[2022-10-17] MEDS: SODIUM CHLORIDE 0.9% 1,000 ML IV SCH ×3 (12:20→22:03)
[2022-10-17] MEDS ORDERED: HEPARIN/NACL 0.9% 2 UNITS/ML 2,000 UNIT/1,000 ML BAG IV ONE (13:10)
[2022-10-17] MEDS ORDERED: NITROGLYCERIN DRIP 50 MG/250 ML BOTTLE IV ONE (13:10)
[2022-10-17] MEDS ORDERED: VERAPAMIL 5 MG/2 ML VIAL ONE (13:10)
[2022-10-17] MEDS ORDERED: diphenhydrAMINE CAP 50 MG CAPSULE PO ONE (13:30)
[2022-10-17] MEDS ORDERED: DIAZEPAM 5 MG TABLET PO ONE (13:30)
[2022-10-17] MEDS ORDERED: fentaNYL 100 MCG/2 ML VIAL ONE (14:03)
[2022-10-17] MEDS ORDERED: MIDAZOLAM 2 MG/2 ML VIAL ONE ×2 (14:03→14:32)
[2022-10-17] MEDS ORDERED: METOPROLOL SUCCINATE XL 50 MG TABLET PO SCH (21:00)
[2022-10-18 05:26] LABS: Basophils % 0.4 % (0.0-0.8); Eosinophils # 0.4 10*3/uL (0.0-0.87); Hematocrit 31.2 VOL% (35.7-47.0); Hemoglobin 9.9 GM/DL (12.0-16.0); Immature Granulocytes % 0.4 %; Immature Granulocytes Absolute 0.03 #; Lymphocytes # 1.3 10*3/uL (1.4-4.0); Lymphocytes % 18.1 % (21.3-54.2); Mean Corpuscular HGB Conc 31.7 GM/DL (32-36); Mean Corpuscular Volume 99.7 FL (87-102); Mean Platelet Volume 9.3 FL (9.6-12.0); Monocytes # 0.6 10*3/uL (0.11-0.8); Monocytes % 7.9 % (1.7-12.7); Neutrophils % 68.2 % (38.7-73.9); Platelet Count 278 T/CUMM (130-400); Red Blood Count 3.13 MC/CUMM (3.8-5.5); Red Cell Distribution Width 14.4 % (9.3-17.3)
[2022-10-18] MEDS: SODIUM CHLORIDE 0.9% 1,000 ML IV SCH (05:52)
[2022-10-18 06:21] LABS: Albumin 3.2 G/DL (3.4-5.0); Bilirubin,Total 0.4 MG/DL (0.20-1.00); Calcium 8.9 MG/DL (8.5-10.1); Osmolality,Calculated 283.3 MOS/KG (273-304); Potassium 4.1 MMOL/L (3.5-5.1)
[2022-10-18 08:24] VITALS: BP 171/77
[2022-10-18] MEDS: amLODIPine 2.5 MG TABLET PO SCH (08:37)
[2022-10-18] MEDS: ISOSORBIDE MONONITRATE 30 MG TABLET PO SCH (08:37)
[2022-10-18] MEDS: PANTOPRAZOLE 40 MG TABLET PO SCH (08:38)
[2022-10-18] MEDS: ASPIRIN EC 81 MG TABLET PO SCH (08:38)
[2022-10-18] MEDS: SERTRALINE 25 MG TABLET PO SCH (08:38)
[2022-10-18] MEDS ORDERED: METOPROLOL SUCCINATE XL 25 MG TABLET PO SCH (09:00)
== END 2022-10-18 11:34 | disposition home or self-care (01) ==
LOC: N.ED 13:36 → N.EDINP 13:36 → SUATTDRO 15:52 → N.2W 17:17
PROVIDERS: ADMIT Internal Medicine; ATTEND Family Medicine
PROC: CLCCHCL (ICD-10-PCS; 2022-10-17 14:45)

== ENCOUNTER 2022-10-31 00:01 | Observation (INO) ==
[2022-10-31] MEDS ORDERED: ASPIRIN 325 MG TABLET PO STA (00:27)
[2022-10-31] MEDS ORDERED: MORPHINE 2 MG/1 ML SYRINGE IV STA (00:27)
[2022-10-31] MEDS ORDERED: NITROGLYCERIN 2% OINT 1 INCH/GM PACK TOP STA (00:27)
[2022-10-31] MEDS ORDERED: ONDANSETRON 4 MG/2 ML VIAL IV STA (00:27)
[2022-10-31 00:40] LABS: Basophils # 0.1 10*3/uL (0.0-0.2); Basophils % 0.7 % (0.0-0.8); Eosinophils # 0.3 10*3/uL (0.0-0.87); Eosinophils % 3.5 % (0.00-10.9); Hematocrit 32.8 VOL% (35.7-47.0); Hemoglobin 10.7 GM/DL (12.0-16.0); Immature Granulocytes % 0.4 %; Immature Granulocytes Absolute 0.03 #; Lymphocytes % 40.2 % (21.3-54.2); Mean Corpuscular HGB Conc 32.6 GM/DL (32-36); Mean Corpuscular Volume 96.8 FL (87-102); Mean Platelet Volume 9.3 FL (9.6-12.0); Monocytes # 0.6 10*3/uL (0.11-0.8); Monocytes % 8.3 % (1.7-12.7); Neutrophils % 46.9 % (38.7-73.9); Platelet Count 380 T/CUMM (130-400); Red Blood Count 3.39 MC/CUMM (3.8-5.5); Red Cell Distribution Width 14.2 % (9.3-17.3); White Blood Count 7.49 T/CUMM (4-12)
[2022-10-31 01:01] LABS: Alanine Aminotransferase 22 U/L (13-56); Albumin 3.9 G/DL (3.4-5.0); Alkaline Phosphatase 119 U/L (45-117); Aspartate Amino Transferase 25 U/L (0-37); Bilirubin,Total < 0.39 MG/DL (0.20-1.00); Blood Urea Nitrogen 25 MG/DL (7-18); Calcium 9.5 MG/DL (8.5-10.1); Carbon Dioxide 24 MMOL/L (21-32); Chloride 106 MMOL/L (98-107); Glucose 121 MG/DL (74-106); Osmolality,Calculated 281.5 MOS/KG (273-304); Potassium 4.1 MMOL/L (3.5-5.1); Sodium 139 MMOL/L (136-145); Total Protein 6.7 G/DL (6.4-8.2)
[2022-10-31] MEDS ORDERED: MORPHINE 2 MG/1 ML SYRINGE IV PRN (01:50)
[2022-10-31] MEDS ORDERED: ACETAMINOPHEN 325 MG TABLET PO PRN (01:50)
[2022-10-31] MEDS ORDERED: ONDANSETRON 4 MG/2 ML VIAL IV PRN (01:50)
[2022-10-31] MEDS ORDERED: CALCIUM CARBONATE CHEW 500 MG TABLET PO PRN (03:06)
[2022-10-31] MEDS ORDERED: NITROGLYCERIN SL 0.4 MG TABLET SL PRN (03:06)
[2022-10-31] MEDS ORDERED: PSYLLIUM POWDER 3.7 GM/PACK PO PRN (03:59)
[2022-10-31] MEDS ORDERED: ISOSORBIDE MONONITRATE 30 MG TABLET PO SCH (09:00)
[2022-10-31] MEDS ORDERED: SERTRALINE 25 MG TABLET PO SCH (09:00)
[2022-10-31] MEDS ORDERED: ASPIRIN EC 81 MG TABLET PO SCH (09:00)
[2022-10-31] MEDS ORDERED: CYANOCOBALAMIN 500 MCG TABLET PO SCH (09:00)
[2022-10-31] MEDS ORDERED: PANTOPRAZOLE 40 MG TABLET PO SCH (09:00)
[2022-10-31] MEDS ORDERED: amLODIPine 5 MG TABLET PO SCH (09:00)
[2022-10-31] MEDS ORDERED: METOPROLOL SUCCINATE XL 25 MG TABLET PO SCH (09:00)
[2022-10-31] MEDS ORDERED: RIVAROXABAN 2.5 MG TABLET PO SCH (09:00)
[2022-10-31] MEDS ORDERED: CHOLECALCIFEROL 1,000 UNIT TABLET PO SCH (09:00)
[2022-10-31] MEDS ORDERED: ASCORBIC ACID 500 MG TABLET PO SCH (09:00)
[2022-10-31] MEDS ORDERED: MULTIVITAMIN (CENTRUM) TABLET PO SCH (09:00)
[2022-10-31] MEDS ORDERED: KETOROLAC 30 MG/1 ML VIAL IV ONE (10:08)
[2022-10-31] MEDS ORDERED: GABAPENTIN 100 MG CAPSULE PO SCH (10:11)
[2022-10-31] MEDS ORDERED: ACETAMINOPHEN 325 MG TABLET PO SCH (10:12)
[2022-10-31 11:59] VITALS: BP 104/44
[2022-10-31] MEDS ORDERED: METOPROLOL SUCCINATE XL 50 MG TABLET PO SCH (21:00)
== END 2022-10-31 12:30 | disposition home or self-care (01) ==
LOC: N.ED 00:01 → N.2E 00:01
PROVIDERS: ADMIT Family Medicine; ATTEND Family Medicine